=== PATIENT | female | born 1960 | race Caucasian/White ===

== ENCOUNTER 2018-04-16 11:02 | Emergency (ER) | payer OTHER ==
[2018-04-16 11:09] VITALS: BP 157/84; PULSE 74; TEMP 97; O2SAT 99; BMI 26.2
[2018-04-16 12:03] LABS: SQUAMOUS EPITHIAL 7 /hpf (0-5); URINE BACTERIA RARE (<OCC); URINE BILIRUBIN NEGATIVE (NEGATIVE); URINE BLOOD SMALL (NEGATIVE); URINE CLARITY TURBID (Clear); URINE COLOR YELLOW (YELLOW); URINE GLUCOSE (UA) NEG (Normal); URINE LEUKOCYTE ESTERASE LARGE Leu/uL (Negative); URINE PROTEIN 100 mg/dL (NEGATIVE); URINE UROBILINOGEN 0.2-1.0 mg/dL (0.2-1.0)
--- NOTE | 2018-04-16 12:40 | ED PDOC ---
HPI: Female Pain Time Seen by Provider: 04/16/18 11:24 Chief Complaint (Nursing): Female Genitourinary Chief Complaint (Provider): Female Genitourinary History Per: Patient History/Exam Limitations: no limitations Onset/Duration Of Symptoms: Days (x3) Current Symptoms Are (Timing): Still Present Associated Symptoms: denies: Fever, Chills, Nausea, Vomiting Additional Complaint(s): 57 year old female with a past medical history of uterine cancer, HTN, diabetes , depression, anxiety and high blood pressure presents to the ED complaining of dysuria, urinary frequency, and urinary urgency for the last three days, worsening this morning. Today, patient states she's developed lower abdominal pain. Patient denies a history of UTI, fever, chills, nausea, vomiting, flank pain, hematuria, abnormal vaginal bleeding and abnormal vaginal discharge. PMD: Dr. Dhaliwal LNMP: 1983 due to hysterectomy . Past Medical History Reviewed: Historical Data, Nursing Documentation, Vital Signs Vital Signs: Last Vital Signs Temp 97 F L 04/16/18 11:08 Pulse 74 04/16/18 11:08 Resp BP 157/84 H 04/16/18 11:08 Pulse Ox 99 04/16/18 11:08 - Medical History PMH: Arthritis, Asthma, Colonic Polyps, COPD, Depression, Fractures (HAND/ CHILDHOOD CASTED), Gastritis, HTN, Hypercholesterolemia, Pneumonia Denies: Chronic Kidney Disease - Surgical History Other surgeries: Hysterectomy, ORIF of the left foot. - Family History Family History: States: Unknown Family Hx - Social History Current smoker - smoking cessation education provided: Yes (half a pack a day ) Alcohol: Social Drugs: Denies - Home Medications Home Medications: Ambulatory Orders Medication Instructions Recorded Clopidogrel [Plavix] 75 mg PO DAILY 07/02/14 Lisinopril/Hydrochlorothiazide 1 tab PO DAILY 07/02/14 [Lisinopril-Hctz 20-25 mg Tab] Pantoprazole [Protonix EC Tab] 40 mg PO DAILY #0 ect 01/27/16 Fluticasone/Salmeterol 250/50 1 puff IH Q12 PRN 05/26/16 [Advair Diskus] Nitrofurantoin Macrocrystals 100 mg PO BID #14 cap 04/16/18 [Macrobid] Phenazopyridine HCl [Pyridium] 200 mg PO BID PRN #4 tablet 04/16/18 - Allergies Allergies/Adverse Reactions: Allergies Allergy/AdvReac Type Severity Reaction Status Date / Time No Known Allergies Allergy Verified 05/26/16 07:58 Review of Systems ROS Statement: Except As Marked, All Systems Reviewed And Found Negative Constitutional: Negative for: Fever, Chills Gastrointestinal: Positive for: Abdominal Pain (lower abdominal pain ). Negative for: Nausea, Vomiting, Other (flank pain ) Genitourinary Female: Positive for: Dysuria, Frequency (and urgency). Negative for: Hematuria, Vaginal Discharge, Vaginal Bleeding Physical Exam - Reviewed Nursing Documentation Reviewed: Yes Vital Signs Reviewed: Yes - Physical Exam Comments: GENERAL APPEARANCE: Patient is awake, alert, oriented x 3, in no acute distress , resting comfortably, non-toxic appearing. SKIN: Warm, dry; (-) cyanosis. EYES: (-) conjunctival pallor. ENMT: Mucous membranes moist. Airway patent: (-) stridor. NECK: Supple, FROM CHEST AND RESPIRATORY: (-) wheezing; (-) rales, (-) rhonchi, (-) rub; breath sounds equal bilaterally. Speaking in full sentences, respirations even and nonlabored. HEART AND CARDIOVASCULAR: (-) irregularity; (-) murmur, (-) gallop. ABDOMEN AND GI: (+) mild suprapubic tenderness. Remainder of abdomen (-) soft, ( -) non-tender, non-distended (-) guarding, (-) rebound. (-) CVA tenderness bilaterally. EXTREMITIES: (-) deformity, (-) edema. NEURO AND PSYCH: Mental status as above; (-) focal findings. Gait steady, speech clear. (-) facial asymmetry (-) aphasia - ECG O2 Sat by Pulse Oximetry: 99 (RA) Pulse Ox Interpretation: Normal Medical Decision Making Medical Decision Making: Time: 1134 Impression: Dysuria, urinary frequency, probable UTI Plan: -- Pyridium 200 mg PO -- Tylenol 650 mg PO -- Urinalysis -- Urine Culture Time: 1215 -- Urinalysis reviewed; patient to be treated for UTI, given Macrobid 100mg PO. -- Accucheck results = 100 Time:1245 -- Patient remains awake, alert, oriented x 3 and is laying in bed comfortably. On exam, neck is supple, lungs are clear, abdomen is soft and non tender, heart is at regular rate and rhythm. Repeat neuro shows no focal findings. Vitals stable. Arrangements made for discharge and outpatient follow up with PMD. -- Advised to take medication as prescribed. Return to the emergency room at any time for any new or worsening symptoms. Patient states she fully agrees with and understands discharge instructions. States that she agrees with the plan and disposition. Verbalized and repeated discharge instructions and plan. I have given the patient opportunity to ask any additional questions. Scribe Attestation: Documented by Cara Smith, acting as a scribe for Henna Fleming PA-C Provider Scribe Attestation: All medical record entries made by the Scribe were at my direction and personally dictated by me. I have reviewed the chart and agree that the record accurately reflects my personal performance of the history, physical exam, medical decision making, and the department course for this patient. I have also personally directed, reviewed, and agree with the discharge instructions and disposition. Disposition - Clinical Impression Clinical Impression: UTI (urinary tract infection), Dysuria - Patient ED Disposition Is Patient to be Admitted: No Counseled Patient/Family Regarding: Studies Performed, Diagnosis, Need For Followup, Rx Given - Disposition Referrals: Non [facility] Provider, [Primary Care Provider] - Disposition: Routine/Home Disposition Time: 12:46 Condition: STABLE Additional Instructions: Follow up with PMD in 1-2 days without fail. Return to ED with any new or worsening symptoms Take prescribed antibiotics until completed. Prescriptions: Nitrofurantoin Macrocrystals [Macrobid] 100 mg PO BID #14 cap Phenazopyridine HCl [Pyridium] 200 mg PO BID PRN #4 tablet PRN Reason: urinary discomfort Instructions: Urinary Tract Infections in Adults, Dysuria, Adult (DC) Forms: [employer] (Kiswahili) Print Language: FRISIAN - POA Present On Arrival: None Results - Lab Results Lab Results: 04/16/18 04/16/18 12:22 11:37 POC Glucose (mg/dL) 100 Urine Color Yellow Urine Clarity Turbid Urine pH 6.0 Ur Specific [place] 1.017 Urine Protein 100 Urine Glucose (UA) Neg Urine Ketones Negative Urine Blood Small Urine Nitrate Negative Urine Bilirubin Negative Urine Urobilinogen 0.2-1.0 Ur Leukocyte Esterase Large Urine RBC (Auto) 35 H Urine Microscopic WBC 1196 H Ur Squamous Epith Cells 7 H Urine Bacteria Rare
== END 2018-04-16 13:11 | disposition home or self-care (01) ==
LOC: H.ER 11:02 → SUPCPDRO 11:02 → H.ER 13:11
DX: N39.0 Urinary tract infection, site not specified (principal); E78.00 Pure hypercholesterolemia, unspecified; F32.9 Major depressive disorder, single episode, unspecified; I10 Essential (primary) hypertension; Z87.19 Personal history of other diseases of the digestive system; J44.9 Chronic obstructive pulmonary disease, unspecified; Z85.42 Personal history of malignant neoplasm of other parts of uterus